=== PATIENT | male | born 2000 | race Caucasian/White ===

== ENCOUNTER 2023-09-14 22:20 | Emergency (ER) | payer MEDICAID ==
[~2023-09-14] VITALS: Ht 170.2 cm; Wt 90.0 kg
[2023-09-14 22:34] VITALS: BP 128/75; PULSE 87; RESP 18; TEMP 98.6; O2SAT 96
[2023-09-15] MEDS ORDERED: AZIT250T12 MT (02:09)
== END 2023-09-15 03:14 | disposition home or self-care (01) ==
LOC: ER 22:20
DX: J18.9 Pneumonia, unspecified organism (principal); R06.02 Shortness of breath; Z90.49 Acquired absence of other specified parts of digestive tract
CPT/HCPCS: 71045; 99283